=== PATIENT | male | born 1970 | race Caucasian/White ===

== ENCOUNTER → 2019-12-20 11:42 | Outpatient (CLI) | payer OTHER, SELFPAY ==
--- NOTE | ~2019-12-20 | XR_ITS ---
EXAMINATION: XR tibia fibula LT 2V DATE: 12/20/2019 11:59 INDICATION: Left lower leg injury. TECHNIQUE: 2 views of left tibia and fibula were obtained. COMPARISON: None. FINDINGS: Bone alignment is normal. No fracture. Joint spaces are well maintained. There is no knee j oint effusion. IMPRESSION: 1. Normal tibia and fibula. Reviewed, dictated and finalized at location A. IMPRESSION: 1. Normal tibia and fibula.
== END ==
PROVIDERS: PCP Family Medicine; Visit Provider Physician Assistant
DX: S89.90XA Unspecified injury of unspecified lower leg, initial encounter (principal)
CPT/HCPCS: 73590